=== PATIENT | female | born 1985 | race Caucasian/White ===

== ENCOUNTER 2018-01-06 07:07 | Emergency (ER) | payer OTHER ==
[2018-01-06 07:21] VITALS: BP 135/84
--- NOTE | 2018-01-06 07:22 | UC ---
Eye Complaint HPI - HPI Summary HPI Summary: Patient is a 32 y/o F presenting w/ a left eye complaint onset last night. Left eye is described as red, sore, and has drainage. Sx onset last night. First time having Sx. Patient was wearing contacts a few hours prior to Sx onset. Patient describes waking up with her eye closed shut this morning. No fever, changes in vision. Patient denies pain with eye movement. On nurse's note, pain is rated 1/10. Nothing is reported to aggravate/alleviate Sx. - History of Current Complaint Stated Complaint: EYE ISSUE Time Seen by Provider: 01/06/18 07:10 Hx Obtained From: Patient Onset/Duration: Sudden Onset, Lasting Days - last night, Still Present Timing: Constant Severity Currently: Mild - 1/10 Pain Scale Used: 0-10 Numeric - 1/10 Aggravating Factor(s): Nothing Alleviating Factor(s): Nothing Associated Signs And Symptoms: Positive: Drainage (Clear). Negative: Vision Impairment Bilateral, Fever - Allergies/Home Medications Allergies/Adverse Reactions: Allergies Allergy/AdvReac Type Severity Reaction Status Date / Time No Known Allergies Allergy Verified 01/06/18 07:20 PMH/Surg Hx/FS Hx/Imm Hx - Additional Past Medical History Additional PMH: NEGATIVE: Hx of conjunctival injection Endocrine History: Other - NEGATIVE: DIABETES Other Endocrine History: NEGATIVE: DIABETES Cardiovascular History: Other - NEGATIVE: HTN Other Cardiovascular History: NEGATIVE: HTN - Family History Known Family History: Negative: Blood Disorder - Social History Alcohol Use: Occasionally Substance Use Type: None Smoking Status (MU): Never Smoked Tobacco Review of Systems Constitutional: Other - NEGATIVE: fever Eyes: Other - POSITIVE: redness, soreness, and drainage of left eye NEGATIVE: vision changes, pain with eye movement All Other Systems Reviewed And Are Negative: Yes Physical Exam - Summary Physical Exam Summary: Appearance: Well-appearing, Well-nourished Skin: Warm Eyes: left-sided conjuctival injection, no hyphema, no hypopyon, EOMI, PERRL, ENT: Normal Neck: Supple, nontender Respiratory: Clear to auscultation Cardiovascular: Normal S1, S2. No murmurs. Normal distal pulses in tibial and radial bilaterally. Abdomen: Soft, nontender Musculoskeletal: Normal, Strength/ROM Intact Neurological: Normal, A&Ox3 Psychiatric: Normal General: No acute distress Triage Information Reviewed: Yes Vital Signs: Initial Vital Signs Temp 97.9 F 01/06/18 07:17 Pulse 66 01/06/18 07:17 Resp 16 01/06/18 07:17 BP 135/84 01/06/18 07:17 Pulse Ox 100 01/06/18 07:17 Vital Signs Reviewed: Yes Eye Complaint Course/Dx - Course Course Of Treatment: Left-sided bacterial conjunctivitis seen on exam, 1 dose of ophthalmic antibiotics administered here, instructed to continue for 1 week, and to make an appointment with an field service coordinator or primary care provider if no improvement. No changes in vision, no hyphema or hypopyon, normal extra ocular movements. No evidence of preorbital cellulitis. Patient agrees to understands discharge instructions. - Differential Dx/Diagnosis Provider Diagnoses: LEFT EYE BACTERIAL CONJUNCTIVITIS Discharge - Sign-Out/Discharge Documenting (check all that apply): Patient Departure - discharge All imaging exams completed and their final reports reviewed: No Studies - Discharge Plan Condition: Stable Disposition: HOME Prescriptions: Moxifloxacin 0.5% OPHTH(NF) [Vigamox 0.5% OPHTH(NF)] 1 drop LEFT EYE Q2H 7 Days #1 [email or web address] Patient Education Materials: Conjunctivitis (ED) Referrals: Wm Conklin [Medical Doctor] - Additional Instructions: PLEASE MAKE AN APPOINTMENT TO SEE AN ENTERPRISE ACCOUNT EXECUTIVE WITHIN 1 WEEK IF NO IMPROVEMENT Please take medication as directed: 2 drops in left eye every 2 hours for the first 2 days, then every 4 hours for the next 5 days Please report to the emergency department if he has any worsening or concerning symptoms Please make an appointment to see her primary care doctor within 1-2 weeks - Billing Disposition and Condition Condition: STABLE Disposition: Home - Attestation Statements Document Initiated by Scribe: Yes Documenting Scribe: Baljit Samaniego Provider For Whom Jennifer is Documenting (Include Credential): Param Parsons MD Scribe Attestation: Baljit Andre, [email or web address] for Param Parsons MD on 01/06/18 at 0816. Scribe Documentation Reviewed: Yes Provider Attestation: The documentation as recorded by the Baljit landrum accurately reflects the service I personally performed and the decisions made by me, Param Parsons MD
[2018-01-06] MEDS ORDERED: Ciprofloxacin 0.3% OPTH.SOL* 2.5 ML BTL LEFT EYE ONE (07:39)
== END 2018-01-06 08:05 | disposition home or self-care (01) ==
LOC: UCEAST 07:07
DX: H10.89 Other conjunctivitis (principal)
CPT/HCPCS: 99212; A9270-GY; G0463